=== PATIENT | female | born 1995 | race Caucasian/White ===

== ENCOUNTER 2016-07-16 12:25 | Outpatient (CLI) | payer MEDICAID ==
[~2016-07-16] VITALS: Ht 152.4 cm; Wt 70.4 kg
[2016-07-16 13:02] VITALS: BP 106/59; PULSE 77
[2016-07-16 13:18] LABS: ADD SCAN DIFF NO
[2016-07-16 13:28] LABS: BASOPHILS % 0.3 % (0.0-2.0); EOSINOPHILS # 0.1 10^3/ul (0.0-0.5); EOSINOPHILS % 1.6 % (0.0-7.0); HEMATOCRIT 31.1 % (37.0-47.0); HEMOGLOBIN 10.8 g/dl (12.0-16.0); LYMPHOCYTES # 2.3 10^3/ul (0.8-2.9); LYMPHOCYTES % 29.9 % (15.0-51.0); MEAN CORPUSCULAR HEMOGLOBIN 32.2 pg (29.0-33.0); MEAN CORPUSCULAR HGB CONC 34.7 g/dl (32.0-37.0); MEAN CORPUSCULAR VOLUME 92.8 fl (82.0-101.0); MEAN PLATELET VOLUME 10.3 fl (7.4-10.4); MONOCYTE # 0.8 10^3/ul (0.3-0.9); MONOCYTES % 10.2 % (0.0-11.0); NEUTROPHIL # 4.4 10^3/ul (1.6-7.5); NEUTROPHILS % 56.6 % (39.0-77.0); PLATELET COUNT 258 10^3/UL (140-415); RED BLOOD COUNT 3.35 10^6/ul (4.20-5.40); RED CELL DISTRIBUTION WIDTH 14.2 % (11.5-14.5); WHITE BLOOD COUNT 7.7 10^3/ul (4.8-10.8)
--- NOTE | 2016-07-16 13:48 | RADRPT ---
PROCEDURE: US OB AND ULTRASOUND CERVIX. CLINICAL INDICATION: Vaginal bleeding TECHNIQUE: Multiple sonographic images of the pelvis and gravid uterus were obtained. The images were reviewed on a PACS workstation. Transvaginal images of the cervix were also obtained. COMPARISON: No prior studies are available for comparison. FINDINGS: The cervix is closed with a length of 4.6 cm. There is a single viable intrauterine gestation. Cardiac activity is present with 150 beats per min paul. There is a breech presentation. The placenta is anterior. There is no evidence for an abruption or placenta previa. Measurements were made in order to determine age. The results are as follows: BPD =6.0 cm HC =23.3 cm AC =21.9 cm FL =4.3 cm Estimated gestational age of approximately 25 weeks and 1 day based on ultrasound measurements. Clinical age: 24 weeks and 5 days. The estimated date of delivery is 10/28/16, based on ultrasound measurements. The EFW = 803 g, 71.1%, based on LMP age. RPTAT: AA IMPRESSION: Single viable intrauterine gestation of approximately 25 weeks and 1 day based on ultrasound measur ements. .Jacinto Luis MD, MD Date Time Electronically viewed and signed by .Jacinto Luis MD, on 07/16/2016 13:47 .S/
[2016-07-16] MEDS ORDERED: PRENAT PO ×2 (14:23→14:25)
== END 2016-07-16 14:45 | disposition home or self-care (01) ==
LOC: L-D 12:25 → OBT 12:25 → L-D 12:49 → OBT 14:45
PROVIDERS: ATTEND Obstetrics & Gynecology
DX: O46.92 Antepartum hemorrhage, unspecified, second trimester (principal); R10.9 Unspecified abdominal pain; Z3A.00 Weeks of gestation of pregnancy not specified
CPT/HCPCS: 36415; 76816; 76817; 85025; 86850; 86900; 86901; Z7500; G0463